=== PATIENT | male | born 2000 | race Caucasian/White ===

== ENCOUNTER 2020-04-08 14:23 | Emergency (ER) | payer SELFPAY ==
--- NOTE | 2020-04-08 15:38 | ER Document Report ---
ED Medical Screen (RME) - General Chief Complaint: Chest Pain Stated Complaint: CHEST PAIN Time Seen by Provider: 04/08/20 15:31 Notes: Patient presents complaining of difficulty breathing for the past several months with chest pain for the past 2 weeks. Patient states pain is to the right anterior chest and points to the epigastric and left upper quadrant area. Patient does report occasional palpitations. Patient denies any cough or cold symptoms. Patient denies any fever. Patient denies any nausea or vomiting. She denies any significant past medical history. I have greeted and performed a rapid initial assessment of this patient. A comprehensive ED assessment and evaluation of the patient, analysis of test results and completion of the medical decision making process will be conducted by additional ED providers. - Related Data Allergies/Adverse Reactions: No Known Allergies Allergy (Verified 04/08/20 15:13) Past Medical History - Social History Chew tobacco use (# tins/day): No Frequency of alcohol use: None Drug Abuse: None Pulmonary Medical History: Reports: Hx Asthma Physical Exam - Vital signs Vitals: Temp Pulse Resp BP Pulse Ox 98.2 F 87 20 135/66 H 97 04/08/20 14:35 04/08/20 14:35 04/08/20 14:35 04/08/20 14:35 04/08/20 14:35 - Respiratory Chest status: Tender - Right anterior chest - Cardiovascular Rhythm: Regular Heart sounds: S1 appreciated, S2 appreciated Course - Vital Signs Vital signs: Temp Pulse Resp BP Pulse Ox 98.2 F 87 20 135/66 H 97 04/08/20 14:35 04/08/20 14:35 04/08/20 14:35 04/08/20 14:35 04/08/20 14:35
[2020-04-08 15:52] LABS: ABSOLUTE EOSINOPHILS # (AUTO) 0.1 10^3/uL (0.0-0.6); ABSOLUTE LYMPHOCYTES (AUTO) 1.7 10^3/uL (0.5-4.7); ABSOLUTE MONOCYTES (AUTO) 0.4 10^3/uL (0.1-1.4); BASOPHILS % (AUTO) 0.9 % (0-2); HEMATOCRIT 49.6 % (37.9-51.0); HEMOGLOBIN 17.3 g/dL (13.5-17.0); LYMPHOCYTES % (AUTO) 32.9 % (13-45); MEAN CORPUSCULAR HEMOGLOBIN 31.1 pg (27.0-33.4); MEAN CORPUSCULAR VOLUME 89 fl (80-97); MONOCYTES % (AUTO) 7.2 % (3-13); PLATELET COUNT 221 10^3/uL (150-450); RED BLOOD COUNT 5.58 10^6/uL (4.35-5.55); RED CELL DISTRIBUTION WIDTH 12.9 % (11.5-14.0); TOTAL CELLS COUNTED % (AUTO) 100 %; WHITE BLOOD COUNT 5.3 10^3/uL (4.0-10.5)
[2020-04-08 15:58] LABS: ALBUMIN 4.5 g/dL (3.5-5.0); ALKALINE PHOSPHATASE 76 U/L (38-126); ANION GAP 7 (5-19); ASPARTATE AMINO TRANSFERASE 23 U/L (17-59); BILIRUBIN,DIRECT 0.1 mg/dL (0.0-0.4); BLOOD UREA NITROGEN 14 mg/dL (7-20); CALCIUM 9.9 mg/dL (8.4-10.2); CARBON DIOXIDE 29 mmol/L (22-30); CHLORIDE 102 mmol/L (98-107); GLUCOSE 92 mg/dL (75-110); POTASSIUM 4.8 mmol/L (3.6-5.0)
--- NOTE | 2020-04-08 16:11 | RADIOLOGY REPORT (SQ) ---
EXAM DESCRIPTION: CHEST SINGLE VIEW IMAGES COMPLETED DATE/TIME: 04/08/2020 3:44 pm REASON FOR STUDY: cp COMPARISON: None. EXAM PARAMETERS: NUMBER OF VIEWS: One view. TECHNIQUE: Single frontal radiographic view of the chest acquired. RADIATION DOSE: NA LIMITATIONS: None. FINDINGS: LUNGS AND PLEURA: No opacities, masses or pneumothorax. No pleural effusion. MEDIASTINUM AND HILAR STRUCTURES: No masses. Contour normal. HEART AND VASCULAR STRUCTURES: Heart normal in size. Normal vasculature. BONES: No acute findings. HARDWARE: None in the chest. OTHER: No other significant finding. IMPRESSION: NO ACUTE RADIOGRAPHIC FINDING IN THE CHEST. TECHNICAL DOCUMENTATION: JOB ID: [id number] [employer]- All Rights Reserved Reading location - IP/workstation name: [email or web address]
--- NOTE | 2020-04-08 17:55 | ER Document Report ---
ED General - General Chief Complaint: Chest Pain Stated Complaint: CHEST PAIN Time Seen by Provider: 04/08/20 15:31 Primary Care Provider: [facility] [Provider Group] - Follow up in 3-5 days [facility] [Provider Group] - Follow up in 3-5 days Notes: Patient is a 19-year-old male presents emergency department with a chief complaint of chest pain that started about 2 weeks ago. States it is at his right side of his chest. States that he has some palpitations. Does denies any cough. Denies fever. Denies any abdominal pain. States the pain is at both sides of his ribs. Patient was a former smoker. Has not smoked for over the past 4 to 5 months. Patient also states that he feels both his legs have been cold for the past few months. - Related Data Allergies/Adverse Reactions: No Known Allergies Allergy (Verified 04/08/20 15:13) Past Medical History - General Information source: Patient - Social History Smoking Status: Former Smoker Chew tobacco use (# tins/day): No Frequency of alcohol use: None Drug Abuse: None Family History: Reviewed & Not Pertinent Pulmonary Medical History: Reports: Hx Asthma Review of Systems - Review of Systems Notes: REVIEW OF SYSTEMS: CONSTITUTIONAL : Denies recent illness. Denies recent unintentional weight loss. Denies fever, chills, or sweats. EENT: Denies eye, ear, throat, or mouth pain, discharge, or symptoms. Denies nasal or sinus congestion. CARDIOVASCULAR: See HPI. RESPIRATORY: Denies shortness of breath, cough, congestion, difficulty breathing, or wheezing. GASTROINTESTINAL: Denies nausea, vomiting, and diarrhea. Denies abdominal pain. Denies constipation. GENITOURINARY: Denies difficulty urinating, burning, blood in urine, urgency or frequency. MUSCULOSKELETAL: Denies neck and back pain. Denies joint pain or swelling. See HPI. SKIN: Denies rash, itchiness, or lesions HEMATOLOGIC : Denies easy bruising or bleeding. LYMPHATIC: Denies swollen, painful, enlarged glands. NEUROLOGICAL: Denies no numbness or tingling denies weakness. Denies headache. Denies altered mental status. Denies alteration in speech. PSYCHIATRIC: Denies stress, anxiety, alteration in sleep patterns, or depression. All other systems reviewed and negative. Physical Exam - Vital signs Vitals: Temp Pulse Resp BP Pulse Ox 98.2 F 87 20 135/66 H 97 04/08/20 14:35 04/08/20 14:35 04/08/20 14:35 04/08/20 14:35 04/08/20 14:35 - Notes Notes: PHYSICAL EXAMINATION: GENERAL: Appears well, healthy, well-nourished, no acute distress. HEAD: Normocephalic, atraumatic. EYES: PERRL, conjunctiva normal, all extraocular movements intact, sclera nonicteric ENT: Moist mucous membranes. NECK: Supple, no noticeable swelling, redness, rash. Normal range of motion. LUNGS: Equal breath sounds bilaterally and clear to auscultation. No wheezes rales or rhonchi. CARDIOVASCULAR: S1-S2, regular rate, regular rhythm. Radial pulses 2+, normal. ABDOMEN: Normoactive bowel sounds. Soft, nontender, no guarding, no rebound tenderness, and no masses palpated. EXTREMITIES: Normal strength and range of motion, no pitting or edema. No cyanosis. NEUROLOGICAL: Moves all extremities upon command. Strength 5/5 in all extremities. PSYCH: Normal mood, normal affect. SKIN: Warm, dry. No rash, lesions, ulcerations noted. Normal skin turgor. Course - Re-evaluation Re-evalutation: 04/08/20 18:03 Hematology is unremarkable, other than a slightly elevated and hemoglobin of 17.3. Chemistries are unremarkable. Capillary refill less than 3 seconds. Dorsalis pedis and posterior tibial pulses 2+. No vascular compromise noted. Spoke with patient about possibility of having Raynaud's phenomenon, but the patient does not wear warm clothes during the wintertime. Advised him to wear warm clothes and then reassess his legs. TSH ordered in triage is normal. Lipase is also normal. Troponin is negative. Patient will be started on Motrin for costochondritis and Pepcid for possible GERD. He will follow up with primary care provider. He is in agreement with this plan. I have a low suspicion for pulmonary emboli, as his vital signs are stable and patient is not tachycardic. He does not smoke and he has not had any long car rides. Follow- up precautions were given. Verbal discharge instructions were given to the patient. They verbalized understanding. They are stable for discharge. - Vital Signs Vital signs: Temp Pulse Resp BP Pulse Ox 98.2 F 87 20 135/66 H 97 04/08/20 14:35 04/08/20 14:35 04/08/20 14:35 04/08/20 14:35 04/08/20 14:35 - Laboratory Results Result Diagrams: 04/08/20 15:23 04/08/20 15:23 Laboratory Results Interpreted: 04/08/20 15:23 RBC 5.58 H Hgb 17.3 H Critical Laboratory Results Reviewed: No Critical Results - Radiology Results Critical Radiology Results Reviewed: No Critical Results - EKG Interpretation by Me Additional EKG results interpreted by me: 04/08/20 17:58 Sinus rhythm. Rate 71. MS 186; QRS 82; QT 364; QTc 396. No ST elevations or depressions noted. No previous EKG for comparison. Discharge - Discharge Clinical Impression: Costochondritis Chest pain Qualifiers: Chest pain type: intercostal pain Qualified Code(s): R07.82 - Intercostal pain GERD (gastroesophageal reflux disease) Qualifiers: Esophagitis presence: without esophagitis Qualified Code(s): K21.9 - Gastro- esophageal reflux disease without esophagitis Condition: Stable Disposition: HOME, SELF-CARE Additional Instructions: You were seen today in the emergency department for chest pain and cold feet. As discussed, wear layers to help with the cold during cold months. As far as her chest pain goes, take Pepcid and Motrin. You can buy these medications [id number] or use the prescriptions. Follow-up with a primary care provider or one of the [facility] clinics below. Prescriptions: Ibuprofen [Motrin 600 Mg Tablet] 600 mg PO Q6HP PRN #30 tablet PRN Reason: Famotidine [Pepcid 20 mg Tablet] 20 mg PO BID #60 tablet Forms: Return to Work Referrals: [facility] [Provider Group] - Follow up in 3-5 days [facility] [Provider Group] - Follow up in 3-5 days
[2020-04-08 18:33] VITALS: BP 126/72
--- NOTE | 2020-04-08 19:36 | EKG REPORT ---
SEVERITY:- NORMAL ECG - SINUS RHYTHM : Confirmed by: Haroldo Wallace MD 08-Apr-2020 19:36:20
== END 2020-04-08 18:12 | disposition home or self-care (01) ==
LOC: ER 14:23
DX: M94.0 Chondrocostal junction syndrome [Tietze] (principal); R07.82 Intercostal pain; K21.9 Gastro-esophageal reflux disease without esophagitis
CPT/HCPCS: 36415; 71045; 80053; 83690; 84443; 84484; 85025; 93005; 93010; 99285